=== PATIENT | male | born 2000 | race Caucasian/White ===

== ENCOUNTER 2022-04-08 08:56 | Emergency (ER) | payer OTHER ==
[~2022-04-08] VITALS: Ht 180.3 cm; Wt 95.3 kg
[2022-04-08 09:10] VITALS: BP 141/63
[2022-04-08] MEDS ORDERED: IBUP-2213 PO (10:10)
--- NOTE | 2022-04-08 10:18 | NUR ---
DR.DE PAUL AT PT BEDSIDE
--- NOTE | 2022-04-08 10:38 | NUR ---
Patient discharged with v/s stable. Written and verbal after care instructions given and explained. Patient verbalized understanding. Ambulatory with steady gait. All questions addressed prior to discharge. Advised to follow up with PMD.
[2022-04-08 10:39] VITALS: BP 127/68
== END 2022-04-08 10:40 | disposition home or self-care (01) ==
LOC: EDSEX 08:56 → MED 08:56
DX: S06.0X0A Concussion without loss of consciousness, initial encounter (principal); W22.8XXA Striking against or struck by other objects, initial encounter; Y92.89 Other specified places as the place of occurrence of the external cause; Y93.89 Activity, other specified; Y99.8 Other external cause status
CPT/HCPCS: 70450; 99284